=== PATIENT | male | born 1965 | race Caucasian/White ===

== ENCOUNTER → 2018-08-07 | Outpatient (CLI) | payer OTHER, SELFPAY ==
[2018-08-07 09:00] VITALS: BMI 26.5
--- NOTE | 2018-08-07 09:03 | RAD_ITS ---
STUDY: X-RAY - LEFT ANKLE REASON FOR EXAM: Pain and swelling, no specific injury. TECHNIQUE: 3 view(s) of the ankle. COMPARISON: None. FINDINGS: Normal visualized distal tibia and fibula. Normal medial and lateral malleoli. Normal tibiotalar articulation and ankle mortise. Normal visualized talus and calcaneus. The visualized subtalar, talonavicular, calcaneocuboid and tarsal articulations are normal. There is a small soft tissue calcification at the peripheral aspect of the medial malleolus. RAD/Ankle min 3 Views IMPRESSION: Small soft tissue calcification adjacent to the medial malleolus. Otherwise, unremarkable x-ray examination of the left ankle. Electronically Signed: Guicho Whitney MD at 9:34 EDT Tel , Service support ,
[2018-08-07 10:02] LABS: Lyme Ab Screen Interpretation REF LAB
[2018-08-07 12:03] LABS: Erythrocyte Sedimentation Rate < 1 mm/hr (0-20)
[2018-08-07 12:07] LABS: Absolute Lymphocyte Count 0.81 X10^3/ul (0.83-4.51); Absolute Neutrophil Count 2.3 X10^3/uL (2.0-7.7); Basophil# 0.01 X10^3/uL; Basophil% 0.3 % (0-1); Eosinophil# 0.04 X10^3/uL; Eosinophils% 1.1 % (0-5); Hematocrit 42.1 % (40-54); Hemoglobin 14.8 g/dl (13.0-16.5); Lymphocyte # 0.81 X10^3/ul (4.0); Lymphocyte % 22.9 % (19-41); Mean Corp Hgb Conc 35.2 g/gl (32-36); Mean Corpuscular Hgb 31.9 pg (27.0-32.0); Mean Corpuscular Volume 90.7 fL (80-94); Mean Platelet Vol. 10.3 fl (6.2-12.0); Monocyte% 11.3 % (0-10); Neutrophil # 2.28 X10^3/uL (2.7-7.7); Neutrophil % 64.4 % (47-70); Platelet Count 176 K/mm3 (150-450); RBC Distribution Width CV 11.9 % (11.6-14.6); Red Blood Count 4.64 M/mm3 (4.6-6.2); White Blood Count 3.5 K/mm3 (4.4-11.0)
[2018-08-07 12:19] LABS: POSITIVE COUNT NO; POSITIVE DIFFERENTIAL NO; POSITIVE MORPHOLOGY NO
[2018-08-07 12:35] LABS: CRP < 2.90 mg/L (0.0-3.0); Rheumatoid Factor < 10.0 IU/mL (<15)
[2018-08-08 12:34] LABS: ANTINUCLEAR ANTIBODIES DIRECT Negative (Negative)
[2018-08-13 11:24] LABS: HLA B27 Negative (.)
[2018-08-13 11:25] LABS: CCP IgG Antibodies 5 units (0-19); Lyme Scn Total Ab w/Rflx <0.91 ISR (0.00-0.90)
== END | disposition home or self-care (01) ==
PROVIDERS: Family Provider Physician Assistant; PCP Physician Assistant; Referring Provider Orthopaedic Surgery; Visit Provider Orthopaedic Surgery
DX: M25.572 Pain in left ankle and joints of left foot (principal); M25.472 Effusion, left ankle
CPT/HCPCS: 36415; 73610; 81374; 85025; 85652; 86038; 86140; 86200; 86431; 86618

== ENCOUNTER 2018-08-14 15:15 | Outpatient (RCR) | payer OTHER, SELFPAY ==
[2018-08-07 09:00] VITALS: BMI 26.5
--- NOTE | 2018-08-14 16:27 | HP.PTEVAL ---
Patient's Visit Information CARSON ANGEL is a 53 year old M referred to Physical Therapy by Karina Romeo DO with a diagnosis of L ankle pain. Date of Evaluation: 08/14/18 Physical Therapist: Celso Barrera PT, ATC - Visit Plan Frequency: 1x/Week Duration: 1 Week Plan: Pt was issued a HEP for L ankle stretching, balance, and strengthening ex's - Subjective Findings: Pt reports R ankle pain for approximately 5 weeks. Pt reports pain had an insidious onset in nature. Pt reports he just woke up with pain and swelling one morning. Pt reports the pain eventually decreased, but the welling remained. Pt reports he had xrays performed which revealed a gee fragment in his L ankle. Pt reports he received a steroid shot in his joint and was told to go to PT. 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 Pt reports he is not limited from anything overall, but just has to be a littl more careful than usual. No tingling or numbness at this time. No sleep difficulty secondary to pain.1 /10 pain at rest, 2/10 pain at worst (getting out of bed) - Pain L ankle Pain Intensity (Out of 10): 1 Pain Intensity Range: 2 - Objective Neuro: B LE sensation was WNL to light touch. B patellar reflex= 2/3. Palpation: Pt is sore on the ant tib-fib ligament. [place] welling noted. Girth at joint line: R ankle 27 cm, L ankle 28 cm. ROM: L ankle DF= 15, PF= 50; R ankle DF= 10, PF= 50. MMT: 5/5 throughout. Gait: Pt ambulates with early pronation during stance phase. 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 For Medicare and Medicare HMO plans, please review the plan of care and approve it. It will need to be FAXED BACK to us at [phone] for Medicare purposes. For Medicare only, by signing this I certify the plan of care. Please let me know if there are questions or concerns regarding this plan of care. Physician Signature: Date:
--- NOTE | 2018-12-29 17:10 | HP.PT.NRP ---
HP - Discharge Summary (1) - Patient Information CARSON ANGEL was seen in my office for initial evaluation on 08/14/18. The following Plan of Care was established for this patient: Initial Frequency: 1x/Week Initial Duration: 1 Week - Anticipated Interventions Patient/Client Instruction: Educate patient on: Condition, Plan of Care For the Purpose of:: To improve self management Therapeutic Exercise to Include: Strength training, Balance training, Flexibilty training For the Purpose of:: To decrease pain, To increase ROM, To improve muscle performance and motor function This patient was last seen in our office . Pertinent comments regarding their Physical therapy will appear below: Pt was evaluated and issued a HEP on his first visit. Pt was I with that HEP. Discontinue At this point I will be discontinuing this patient from physical therapy. I would be happy to see this patient again in the future if found appropriate by the physician. Thank you! Celso Barrera, PT, ATC
== END 2018-08-14 19:00 | disposition home or self-care (01) ==
LOC: PT 15:15
PROVIDERS: Family Provider Physician Assistant; PCP Physician Assistant; Referring Provider Orthopaedic Surgery; Visit Provider Orthopaedic Surgery
DX: M25.472 Effusion, left ankle (principal); M25.572 Pain in left ankle and joints of left foot
CPT/HCPCS: 97161